=== PATIENT | male | born 2000 | race Caucasian/White ===

== ENCOUNTER 2024-07-24 17:08 | Emergency (ER) | payer OTHER, SELFPAY ==
[2024-07-24 17:13] VITALS: BP 147/76; PULSE 85; RESP 18; TEMP 36.9; O2SAT 100; BMI 35.2
--- NOTE | 2024-07-24 19:22 | ED_ITS ---
HPI - Recheck/Abnormal Lab/Rx General Chief Complaint: Recheck/Abnormal Lab/Rx Stated Complaint: lightheaded, pressure in head Time Seen by Provider: 07/24/24 19:06 Source: patient Mode of arrival: Ambulatory History of Present Illness HPI narrative: 23-year-old male with no reported past medical history presents for headache. Patient states that he was had a pressure-like sensation in his head for the last month. It tends to wax and wane, no significant relief with Tylenol and ibuprofen at home. Patient states that he has been told he has borderline high blood pressure, however it has been attributed to his use of Zyn tobacco p roducts. patient went to [facility] today and was diagnosed with tension headache. He states that he was here for a 2nd opinion. Patient denies worst headache of life, numbness, weakness, vision changes, other complaints at this time. Denies fevers or neck stiffness. Related Data Previous Rx's Medication Instructions Recorded ntwaiggrkt-shkreurodovfj-brjheywn 1 cap PO Q8H PRN pain #20 caps 07/24/24 50 mg-300 mg-40 mg capsule (Fioricet) Patient History tobacco type: smokeless tobacco alcohol intake frequency: holidays/special occasions only Exam Initial Vital Signs Initial Vital Signs: Vital Signs Temperature 98.5 F 07/24/24 17:13 Pulse Rate 85 07/24/24 17:13 Respiratory Rate 18 07/24/24 17:13 Blood Pressure 147/76 H 07/24/24 17:13 Pulse Oximetry 100 07/24/24 17:13 Oxygen Delivery Method Room Air 07/24/24 17:13 Const: Awake, alert, no acute distress, nontoxic appearing HEENT: PERRLA, EOMI, TMs normal bilaterally, neck flexible with full range of motion Skin: Warm, Dry, intact, no rashes Neuro: AO x3, CN II-XII grossly intact, moves all extremities Course Orders Ordered: ED Orders 07/24/24 19:28 CT head/brain wo con Stat Vital Signs Vital signs: Vital Signs - 8 hr 07/24/24 17:13 07/24/24 20:55 Temperature 98.5 F Pulse Rate 85 88 Respiratory Rate 18 15 Blood Pressure 147/76 H 143/77 H Pulse Oximetry 100 97 Oxygen Delivery Method Room Air MDM - Recheck/Abnormal Lab/Rx Imaging Data CT scan - head: Radiologist's Impression: PROCEDURE: CT HEAD/BRAIN WO CON INDICATIONS: DONNELLY/HEAD PRESSURE X 1 MONTH, NOT IMPROVING TECHNIQUE: Noncontrast 4.5 mm thick angled axial sections acquired from the foramen magnum to the vertex, with coronal and sagittal reformats. For radiation dose reduction, the following was used: automated exposure control, adjustment of mA and/or kV according to patient size. COMPARISON: None. FINDINGS: Image quality: Diagnostic. CSF spaces: Basal cisterns are patent. No extra-axial fluid collections. Ventricles are normal in size and shape. Brain: No midline shift. No intracranial masses or hemorrhage. Haines-white matter interface is normal. Skull and face: Calvarium and visualized facial bones are intact, without suspicious lesions. Sinuses: Visualized sinuses and mastoids are clear. IMPRESSION: No acute intracranial pathology. No sinus disease. Dictated by: Jose Keita M.D. on 07/24/2024 at 19:49 Approved by: Jose Keita M.D. on 07/24/2024 at 19:50 [facility] Narrative Medical decision making narrative: patient presenting for persistent pressure sensation in his head.No deficits on exam. Physical exam is unremarkable. No red flag signs per history. Since this is patient's 2nd presentation to the emergency department and he has had a month of ongoing symptoms a CT noncontrast brain will be ordered. CT negative for acute findings. Patient informed of results. Recommended cessation of tobacco products, as well as ongoing discussion with his PCP for further investigation of his head pressure sensation. a as needed breakthrough headache medication given in case Tylenol and ibuprofen are not sufficient. Discharge Plan Departure Patient Disposition: Home Clinical Impression: Pressure in head Instructions: DI for Migraine Activity Restrictions/Additional Instructions: Your Head CT did not show any abnormalities to explain the Pressure sensation that you were feeling in your head. Continue to take Tylenol and ibuprofen as needed for symptoms. If you are continuing to have severe pain or pressure in your head then a prescription of Fioricet has been sent to your pharmacy. Do not take this medication before alcohol or before driving. follow up with your primary care doctor for further investigation of the cause of your headaches. Prescriptions: New esuyvqwmso-yojoygtiysaaj-eolf [Fioricet] 50-300-40 mg capsule 1 cap PO Q8H PRN (Reason: pain) Qty: 20 0RF Stand Alone Forms: Patient Portal/API/Survey
--- NOTE | 2024-07-24 19:28 | DI.CT.S_ITS ---
PROCEDURE: CT HEAD/BRAIN WO CON INDICATIONS: DONNELLY/HEAD PRESSURE X 1 MONTH, NOT IMPROVING TECHNIQUE: Noncontrast 4.5 mm thick angled axial sections acquired from the foramen magnum to the vertex, with coronal and sagittal reformats. For radiation dose reduction, the following was used: automated exposure control, adjustment of mA and/or kV according to patient size. COMPARISON: None. FINDINGS: Image quality: Diagnostic. CSF spaces: Basal cisterns are patent. No extra-axial fluid collections. Ventricles are normal in size and shape. Brain: No midline shift. No intracranial masses or hemorrhage. Haines-white matter interface is normal. Skull and face: Calvarium and visualized facial bones are intact, without suspicious lesions. Sinuses: Visualized sinuses and mastoids are clear. IMPRESSION: No acute intracranial pathology. No sinus disease. Dictated by: Jose Keita M.D. on 07/24/2024 at 19:49 Approved by: Jose Keita M.D. on 07/24/2024 at 19:50
[2024-07-24 20:55] VITALS: BP 143/77; PULSE 88; RESP 15; O2SAT 97
== END 2024-07-24 21:07 | disposition home or self-care (01) ==
PROVIDERS: Emergency Provider Emergency Medicine
DX: R51.9 Headache, unspecified (principal)
CPT/HCPCS: 70450; 99281; 99284